=== PATIENT | male | born 1945 | race Caucasian/White ===

== ENCOUNTER 2016-10-22 11:09 | Day surgery (SDC) | payer MEDICARE ==
[~2016-10-22] VITALS: Ht 177.8 cm; Wt 111.7 kg
[~2016-10-22 11:09] MED LIST: ACET-2930 PO
--- OUTSIDE RECORDS SUMMARY | 2016-10-22 11:13 | XMS REPORT | Continuity of Care Document ---
Author Author [facility] Organization [facility] Address Unknown Phone Unavailable Support Name Relationship Address Phone SHA NEWMAN MD Caregiver [address] [place] [address] [place] [address] Unavailable FREDY MORGAN MD Caregiver Unknown Unavailable NICHOLAS TELLO Next Of Kin [address] [place] [address] Insurance Providers Guarantor Patsy Tello Address [address] [place] [address] Email [email or web address] Payer Medicare[employer]ra Ppo Policy Number [id number] Subscriber's Name Patsy Tello Relationship 18 Self Group Number [id number] Advance Directives Directive Response Recorded Date/Time Ordered Resuscitation Status Full Code, unverified 09/23/16 3:09pm Resuscitation Documents on File No 09/24/16 12:27pm DPOA for Healthcare Only No 09/24/16 12:27pm Living Will No 09/24/16 12:27pm Problems Past Problems Medical Problem Onset Date Cellulitis of leg without foot, right Unknown Medications Current Home Medications Medication Dose Units Route Directions Days Qty Instructions Start Date Acetaminophen/Diphenhydramine (Tylenol Pm Ex-Strength Caplet) 1 Each Tablet 2 Tab Oral As Needed 09/24/16 Social History Social History Problem Response Recorded Date/Time Onset Date Status Chewing Tobacco Status No 09/24/2016 12:30pm Not Applicable Not Applicable Hx Substance Use No 09/23/2016 1:22pm Not Applicable Not Applicable Hx Alcohol Use No 09/23/2016 1:22pm Not Applicable Not Applicable Has the pt used tobacco in the last 12 months No 09/24/2016 12:30pm Not Applicable Not Applicable Query Response Start Date Stop Date Smoking Status Never smoker Hospital Discharge Instructions No hospital discharge instructions. Plan of Care Discharge Date 09/24/16 3:45pm Prescriptions See Medication Section Functional Status Query Response Date Recorded Ability to complete ADL's impeded by No change September 24, 2016 12:27pm Allergies, Adverse Reactions, Alerts No known allergies. Immunizations Query Response on File Recorded Date/Time Hx Influenza Vaccination No 09/23/16 1:22pm Hx Pneumococcal Vaccination No 09/23/16 1:22pm Hx Influenza Vaccination No 09/23/16 1:22pm Vital Signs Acute Vital Signs Vital Response Date/Time Temperature (Fahrenheit) 97.5 deg F (96.8 - 99.1) 09/24/2016 3:00pm Temperature (Calculated Celsius) 36.16844 degrees C (36.0 - 37.3) 09/24/2016 3:00pm Temperature Source Temporal 09/24/2016 3:00pm Pulse Rate (adult) 54 bpm (60 - 100) 09/24/2016 3:30pm Respiratory Rate 16 breaths/min (10 - 20) 09/24/2016 3:30pm O2 Sat by Pulse Oximetry 94 % (90 - 100) 09/24/2016 3:30pm Oxygen Delivery Method Room Air 09/24/2016 3:30pm Blood Pressure 155/87 mm Hg 09/24/2016 3:30pm Blood Pressure Source Automatic Cuff 09/24/2016 3:30pm Height (Feet) 5 feet 09/24/2016 11:54am Height (Inches) 9.00 inches 09/24/2016 11:54am Weight (Kilograms) 113.600 kg 09/24/2016 11:54am Body Mass Index (BMI) 37.0 09/24/2016 11:54am Results No known relevant diagnostic tests, laboratory data and/or discharge summary. Procedures Procedure Status Date Provider(s) Extremity study Completed 08/13/16 Cataract extraction, left Completed 09/24/16 FREDY MORGAN MD Encounters Encounter Location Arrival/Admit Date Discharge/Depart Date Attending Provider Registered [facility] 09/24/16 10:46am FREDY MORGAN MD Registered Clinic [facility] 08/13/16 4:45pm SHA NEWMAN MD
[2016-10-22 12:52] VITALS: BP 142/76; PULSE 65; RESP 13; TEMP 98.1; O2SAT 97; Ht 177.8 cm; Wt 111.7 kg
[2016-10-22] MEDS ORDERED: MOXIFLOXACIN 0.5% EYE DROPS 3ml BOTH EYES ONE (13:00)
[2016-10-22] MEDS ORDERED: CYCLOPENTOLATE 2% EYE DROPS 2ml BOTH EYES ONE (13:00)
[2016-10-22] MEDS ORDERED: PROPARACAINE 0.5% EYE DROPS 15ml OP ONE (13:00)
[2016-10-22] MEDS ORDERED: TROPICAMIDE 1% EYE DROPS 3ml OP ONE (13:00)
[2016-10-22] MEDS ORDERED: NEPAFENAC 0.1% EYE DROPS 3ml OP ONE (13:00)
[2016-10-22] MEDS: PHENYLEPHRINE 2.5% EYE DROPS 5ml RIGHT EYE SCH ×3 (13:06→13:18)
[2016-10-22] MEDS: MOXIFLOXACIN 0.5% EYE DROPS 3ml RIGHT EYE SCH ×3 (13:07→13:18)
[2016-10-22] MEDS: TROPICAMIDE 1% EYE DROPS 3ml RIGHT EYE SCH ×3 (13:07→13:18)
[2016-10-22] MEDS: PROPARACAINE 0.5% EYE DROPS 15ml RIGHT EYE SCH ×3 (13:07→13:18)
[2016-10-22] MEDS: NEPAFENAC 0.1% EYE DROPS 3ml RIGHT EYE SCH ×3 (13:07→13:18)
[2016-10-22] MEDS: CYCLOPENTOLATE 2% EYE DROPS 2ml RIGHT EYE SCH ×3 (13:07→13:18)
[2016-10-22] MEDS ORDERED: NS FOR INJ. 20 ML VIAL INJ ONE (14:00)
[2016-10-22] MEDS ORDERED: VANCOMYCIN 500 MG INJECTION IV ONE (14:00)
[2016-10-22] MEDS ORDERED: BRIMONIDINE 0.2% EYE DROPS 5ml BOTH EYES ONE (14:00)
[2016-10-22] MEDS ORDERED: LIDOCAINE 1% (10mg/ml) 30ml SDV IJ ONE (14:00)
[2016-10-22] MEDS ORDERED: TETRACAINE 0.5% EYE DROPS 4ml BOTTLE OP ONE (14:00)
--- NOTE | 2016-10-22 14:54 | ANESPREOP ---
Anesthesia Record Date and Time DATE: 10/22/16 TIME: 14:52 Pre-Op Diagnosis cataract OD Proposed Surgical Procedure PE WITH IOL OD NPO since: 0500 Allergies: Coded Allergies: No Known Allergies (Unverified , 10/22/16) Ht/Wt/BMI Height: 5 ' 10.00 " Weight: 111.700 kg BMI: 35.3 kg/m2 Vital Signs Date Time Temp Pulse Resp B/P Pulse Ox O2 Delivery O2 Flow Rate FiO2 10/22/16 12:52 98.1 65 13 142/76 97 Room Air Medications Inpatient Medications Current Medications Medications (Trade) Dose Ordered Sig/Ai Start Time Stop Time Status Last Admin Dose Admin Cyclopentolate HCl (Cyclogyl 2%) 1 drop Q5M 10/22/16 16:00 10/22/16 16:11 10/22/16 13:18 1 DROP Tropicamide (Mydriacyl 1% Eye Drops) 1 drop Q5M 10/22/16 16:00 10/22/16 16:11 10/22/16 13:18 1 DROP Proparacaine HCl (Alcaine 0.5% Eye Drops) 1 drop Q5M 10/22/16 16:00 10/22/16 16:11 10/22/16 13:18 1 DROP Phenylephrine HCl (Edwin-Synephrine 2.5% Eye Drops) 1 drop Q5M 10/22/16 16:00 10/22/16 16:11 10/22/16 13:18 1 DROP Tetracaine HCl (Tetracaine 0.5% Eye Drops) 1 drop PRN PRN 10/22/16 16:00 Moxifloxacin HCl (Vigamox) 1 drop Q5M 10/22/16 16:00 10/22/16 16:11 10/22/16 13:18 1 DROP Nepafenac (Nevanac 0.1% Eye Drops) 1 drop Q5M 10/22/16 16:00 10/22/16 16:11 10/22/16 13:18 1 DROP Acetaminophen/Diphenhydramine (Tylenol Pm Ex-Strength Caplet) 1 Each Tablet, 2 TAB PO PRN, (Reported) Last Taken: on 10/21/16 2200 Currently on Beta Dick: No Medical/Surgical History Anesthesia PMH: Reports: Obesity, Denies: Anesthesia Reactions, Arthritis, Cancer, Glaucoma, Malignant Hyperthermia, Sleep Apnea Smoking Status: Never smoker Has pt. smoked today?: No Use Chewing Tobacco?: No Second Hand Exposure: No Substance Use Type: does not use Alcohol Intake: none Past Surgical History Orthopedic Surgeries: Yes - left knee, torn ligament dr chapin Abdominal Surgeries: Genitourinary Surgeries: Cardiac Surgeries: Endocrine Surgeries: Reproductive Surgeries: Neurological Surgeries: Ear Surgeries: Nose Surgeries: Throat Surgeries: Other Surgeries: Yes - CATARACT EXTRACTION-LEFT Anesthesia Adverse Reactions: FOUND none Pertinent Findings EKG Rhythm: Sinus Rhythm Physical Exam Respiratory: Lungs clear Cardiovascular: FOUND Regular rate, rhythm, FOUND No murmur Airway Assessment Mallampati Score: II TMD: 3 Fingerbreadths Neck Extension: Good Teeth: Chipped Teeth/Crowns Overall Assessment: No Airway Concerns ASA: 2 Plan Anesthesia Plan: MAC Discussion Discussed risks/options/alternatives of anesthesia and questions answered. Patient consents. Nursing pain assessment noted. Attestation Statement Prior to the delivery of any anesthetic medication, I examined the patient, developed the plan, obtained the patient's consent and discussed the risk and benefits of the procedure with the patient/guardian. CARON COFFEY I [employer] Oct 22, 2016 14:54
[2016-10-22] MEDS ORDERED: SALINE FLUSH 10ml SYRINGE ONE (15:03)
[2016-10-22] MEDS ORDERED: MIDAZOLAM 2mg/2ml INJECTION ONE (15:03)
[2016-10-22 15:27] VITALS: BP 158/80; PULSE 59; RESP 16; TEMP 97.5; O2SAT 96
--- NOTE | 2016-10-22 15:31 | ANESPO ---
Post-Op Note Date 10/22/16 Time: 15:31 Status Pt Participated in Evaluation: Pt participated in person Vital Signs Date Time Temp Pulse Resp B/P Pulse Ox O2 Delivery O2 Flow Rate FiO2 10/22/16 12:52 98.1 65 13 142/76 97 Room Air Respiratory Function: Airway patent, Regular respirations Mental Status: Alert/oriented Pain Level Intensity: 0 Hydration: Taking po fluids Complications during Recovery None apparent Follow-Up Instructions Instructions Per Surgeon CARON COFFEY CRNA Oct 22, 2016 15:31
[2016-10-22 15:42] VITALS: BP 144/81; PULSE 57; RESP 15; O2SAT 96
[2016-10-22 15:57] VITALS: BP 148/79; PULSE 57; RESP 16; TEMP 98.1; O2SAT 96
[2016-10-22] MEDS ORDERED: TETRACAINE 0.5% EYE DROPS 4ml BOTTLE RIGHT EYE PRN (16:00)
[2016-10-22] MEDS ORDERED: LIDOCAINE 1% (10mg/ml) 2ml SDV INJ ONE (16:00)
--- NOTE | 2016-10-27 11:52 | OPNOTEF ---
DATE OF PROCEDURE 10/22/2016 PREOPERATIVE DIAGNOSIS Cataract, right eye. POSTOPERATIVE DIAGNOSIS Cataract, right eye. PROCEDURE Phacoemulsification with implantation of 19.0 diopter intraocular lens model SA60AT, right eye. ANESTHESIA Topical block monitored by Davon Yi CRNA. SURGEON Dean Trotter MD PROCEDURE IN DETAIL The patient came to the [facility] and was escorted to the preanesthesia area where the appropriate monitoring, eyedrops, and topical anesthetic were administered. The patient was then taken into the operating room and the eye was prepped and draped in the standard sterile manner for ophthalmic surgery. A lid speculum was placed between the lids and the eye was irrigated with 5% Povidine iodine solution, followed by copious irrigation with sterile balanced salt solution after three minutes. The eye surgery began with the initial side port incision through the peripheral clear cornea. Lidocaine preservative free 1% was injected into the anterior chamber. Viscoelastic was exchanged for aqueous. A clear cornea incision was made just anterior to the vascular arcade with a steel keratome blade. A continuous curvilinear anterior capsulorrhexis was performed, followed by hydrodissection and hydrodelineation of the cataract. The phacoemulsification tip was then inserted through the incision into the anterior chamber, and the nucleus of the cataract was emulsified. The remaining cortical material was then aspirated and the posterior capsule was cleaned and polished. A posterior chamber intraocular lens was then implanted into the capsular bag with viscoelastic support. The viscoelastic was then removed from the eye by aspiration. The clear cornea incision was inspected to ensure a water tight seal. The lid speculum was removed. Vigamox, Nevanac, and Brimonidine eyedrops were instilled onto the eye and an eye shield was taped over the eye. The patient was dismissed to the responsible republican with postoperative instructions and a planned follow-up visit. SAROJ
== END 2016-10-22 16:04 | disposition home or self-care (01) ==
LOC: NSC 11:09
PROVIDERS: ATTEND Ophthalmology
DX: H25.813 Combined forms of age-related cataract, bilateral (principal); H35.3131 Nonexudative age-related macular degeneration, bilateral, early dry stage; Z79.899 Other long term (current) drug therapy
CPT/HCPCS: 66984; A9270; C1780; J2250; J3370